=== PATIENT | female | born 1965 | race Caucasian/White ===

== ENCOUNTER → 2017-12-28 | Day surgery (SDC) | payer BC ==
[~2017-12-28] MED LIST: BUPIVACAINE/EPINEPHRINE 0.5% PF 10 ML VIAL ONE; KETOROLAC TROMETHAMINE 30 MG/ML (IVP) VIAL IV PUSH ONE; LACTATED RINGER'S 1000 ML INJ 1,000 ML ONE; LIDOCAINE 1%/EPINEPHrine 1:200,000 PF SOLN 30 ML VIAL ONE; MIDAZOLAM HCL 2 MG/2 ML VIAL ONE; MORPHINE SULFATE 2 MG/ML SYRINGE ONE; ONDANSETRON HCL 4 MG/2 ML VIAL IV PUSH ONE; PROPOFOL 200 MG/20 ML AMP IV ONE; ceFAZolin 1 GM PREMIX 100 ML ONE
--- NOTE | 2017-12-29 09:36 | MP ---
cc: Gregorio Hernandez MD DATE OF OPERATION: 12/28/2017 PREOPERATIVE DIAGNOSIS: Biliary dyskinesia, fatty liver. POSTOPERATIVE DIAGNOSIS: Biliary dyskinesia, fatty liver. PROCEDURE PERFORMED: Laparoscopic cholecystectomy, laparoscopic liver biopsy. SURGEON: Gregorio Hernandez MD PIT BOSS: ELLIOTT ANESTHESIA: GETA. INTRAVENOUS FLUIDS: . ESTIMATED BLOOD LOSS: 5 mL. DRAINS: None. COMPLICATIONS: None. CLASSIFICATION: Clean, contaminated. SPECIMENS: 1. Gallbladder. 2. Liver biopsy. INDICATIONS FOR PROCEDURE: The patient is a 52-year-old female who presents with acute onset of right upper quadrant discomfort. She had further workup including a HIDA scan showing ejection fraction of 10%. Therefore, decision was made for laparoscopic cholecystectomy. The patient further had fatty liver and a liver biopsy was done as well. DETAILS OF PROCEDURE: The patient was taken back to the operating suite, placed in supine position. She was prepped and draped in usual sterile fashion, after induction of general endotracheal anesthesia. Brief timeout undertaken to ensure the correct patient, procedure, surgical site. We were all in agreement with this. Attention was directed to the umbilicus, where a local anesthetic was injected. Stab/chay incision was made. The abdomen was then entered with a 5 mm Optiview Visiport. Abdomen insufflated to 15 mm of pneumoperitoneum. On cursory inspection, no evidence of injury. Three other ports placed, one 10 mm epigastric followed by two 5 mm right subcostals. The patient was placed in reverse Trendelenburg on the left. On visualization of the gallbladder, there was noted to be some gallbladder distention and minimal adhesions to the gallbladder, which were taken down with hook Bovie electrocautery. The fundus was grasped and retracted cephalad. The cystic artery and cystic duct were dissected out in the usual standard method, with hook electric Bovie cautery and a [place] grasper. The 2 clips were placed on the proximal cystic duct and 1 distal and 2 clips were placed on the proximal cystic artery and 1 distal. EndoShears used to transect the cystic duct and cystic artery. The gallbladder was removed from the gallbladder fossa using hook Bovie electrocautery. The gallbladder was placed in an Endobag and removed from the epigastric port. Hemostasis was obtained in the gallbladder fossa. Liver biopsy was done by placing a Frank-Cut liver biopsy through the middle right subcostal port. The Frank-Cut did 2 passes with the biopsy needle in order to get adequate tissue specimen. This was placed on [facility] and sent for pathology as well. Hemostasis done with hook Bovie electrocautery. The ports were removed under direct visualization. The epigastric port was closed with 0 Vicryl on a UR-6. 4-0 Monocryl used for all subcuticular incisions. Sterile dressings were placed, including Steri-Strips and Mastisol. The patient tolerated the procedure well. There were no intraoperative complications. All lap and instrument counts were correct at the end of the procedure. The patient was extubated and taken to the PACU. MD MERCY French/DINORAH/ , 09:11 PM , 09:43 PM
== END | disposition home or self-care (01) ==
LOC: ESDC 12:06
PROVIDERS: ATTEND Surgery
DX: K82.8 Other specified diseases of gallbladder (principal); K76.0 Fatty (change of) liver, not elsewhere classified
CPT/HCPCS: 00790; 47001; 47562; 88304; 88307; 88313; J0690; J1885; J2250; J2270; J2405; J3010; J7120